=== PATIENT | female | born 1955 | race Caucasian/White ===

== ENCOUNTER 2016-08-18 08:51 | Inpatient (IN) | payer MEDICARE, MEDICAID ==
[2016-08-18 09:47] VITALS: BP 155/80
[2016-08-18 11:20] LABS: % BASOPHILS 0.1 % (0.0-2.0); % EOSINOPHILS 0.3 % (0.0-5.0); % LYMPHOCYTES 10.3 % (20.0-50.0); % MONOCYTES 2.5 % (2.0-10.0); % NEUTROPHILS 86.8 % (40.0-80.0); HEMATOCRIT 39.2 % (35.0-45.0); MEAN CELL VOLUME 77.7 fl (81-100); MEAN CORPUSCULAR HEMOGLOBIN 25.7 pg (27.0-31.0); MEAN CORPUSCULAR HGB CONC 33.1 pg (28.0-36.0); MEAN PLATELET VOLUME 6.9 fl; NEUTROPHILE ABSOLUTE 7.4 Th/cmm (1.8-8.0); PLATELET COUNT 436 Th/cmm (150-400); RED BLOOD COUNT 5.05 Mil/cmm (3.80-5.10); RED CELL DISTRIBUTION WIDTH 15.2 % (11.5-20.0); WHITE BLOOD COUNT 8.5 Th/cmm (4.8-10.8)
--- NOTE | 2016-08-18 15:07 | History & Physical ---
CHIEF COMPLAINT: Psychosis. HISTORY OF PRESENT ILLNESS: The patient is a confused 61-year-old female who appears older than her stated age. She apparently is homeless. She was brought to the hospital because of acute psychosis. She is in the acute Geropsych Unit. She has a history of multiple medical issues including neuropathic pain, chronic pain, muscle spasms and GERD and DJD of the hips and knees. PAST MEDICAL HISTORY: Significant for right hip DJD, neuropathic pain, GERD and chronic pain, muscle spasm. SURGICAL HISTORY: She states she has had multiple surgeries including both wrists, right femur, right hip and left knee. When asked what happened, she states that she fell. Also of note, I am unable to see any surgical scars on her above-mentioned surgical sites. ALLERGIES: The patient seems to regurgitate whatever medications she has memorized. She told the staff about 9 medications last night. Today, she says she is allergic to potassium, then she changed her mind to Lyrica. The patient is unable to tell me if she has true allergies to any medication. FAMILY HISTORY: Unknown. HOME MEDICATIONS: Reviewed and reconciled. There is a list available of her home medications. REVIEW OF SYSTEMS: GENERAL: Positive recent fatigue and confusion. HEENT: No recent head trauma, change in vision, taste, hearing, or smell. Oral: Denies any pain or discharge. NECK: No recent tracheal deviation. NEUROLOGIC: She has history of neuropathic pain. ABDOMEN: No recent pain or distention. GASTROINTESTINAL: Denies any nausea, vomiting or diarrhea. SKIN: No recent rashes. PSYCHIATRIC: She has history of depression and psychosis and possible schizophrenia. NEUROLOGIC: No history of stroke or seizure. MUSCULOSKELETAL: She has history of DJD of the right hip and knees as well. PHYSICAL EXAMINATION: VITAL SIGNS: Temperature is 98.9 degrees, heart rate is in the 70s, respirations 18, blood pressure 155/80 currently. She states the pain is about 2/10. GENERAL: No acute distress. She is awake, but confused. She has a labile mood. HEENT: Normocephalic, atraumatic. Pupils are round and reactive to light. Extraocular muscles intact. NECK: Trachea is midline. No JVD. CARDIOVASCULAR: Regular rate and rhythm. RESPIRATORY: Clear, but decreased breath sounds. EXTREMITIES: There is no edema. MUSCULOSKELETAL: She has decreased range of motion in lower extremities bilaterally. NEUROLOGIC: No evidence of acute stroke or seizure activity. GENITOURINARY: No hematuria noted. LABORATORY DATA: I have ordered CBC, CMP, UA and a chest x-ray along with hemoglobin A1c and magnesium level. ASSESSMENT: 1. Right hip degenerative joint disease. 2. Psychosis. 3. Depression. 4. Neuropathic pain. 5. Chronic pain. 6. Muscle spasms. 7. Gastroesophageal reflux disease. PLAN: I will order Tylenol as needed for mild to moderate pain. Follow up on CBC, CMP, UA and a chest x-ray. Continue fall precautions and continue her home medications for neuropathic pain and she will need inpatient psychiatric care. JOB# [id number]
[2016-08-18 17:07] LABS: URINE BILIRUBIN NEGATIVE (NEGATIVE); URINE BLOOD TRACE (NEGATIVE); URINE COLOR YELLOW; URINE GLUCOSE (UA) 100 mg/dL (NEGATIVE); URINE KETONE NEGATIVE (NEGATIVE); URINE PH 8.5; URINE PROTEIN NEGATIVE (NEGATIVE); URINE UROBILINOGEN 0.2 E.U./dL (0.2 - 1.0)
[2016-08-18 17:08] LABS: URINE BACTERIA OCCASIONAL /hpf (NONE SEEN); URINE EPITHELIAL CELLS RARE /lpf (FEW); URINE WBC 0-2 /hpf (0-5)
--- NOTE | 2016-08-19 02:08 | Psychosocial Evaluation ---
JUSTIFICATION FOR HOSPITALIZATION: The patient was brought in due to issues involving around grave disability, complaints of feeling depressed and tearful. The patient states she does not know why she is here. She is somewhat confused, making some odd statements. Per 5150 hold it is noted that she was anxious, irritable, feeling that people are watching her, laughing at her, hopeless and despairing. CHIEF COMPLAINT: "I do not know why I am here." HISTORY OF PRESENT ILLNESS: This is a 61-year-old female who states she has a history of depression, brought in on a 5150 hold with grave disability. The patient brought herself to an ER reporting that she is fearful that people are watching her, noted to be abusing methadone, depressed, overwhelmed and hopeless. She feels that people are laughing at her, feels alone, helpless and despairing "I do not care anymore. I cannot handle anymore, concerns for her ability to care for her basic needs. Sleep "okay" and appetite unknown. The patient states that she is homeless. PAST PSYCHIATRIC HISTORY: She states she was in a psychiatric hospital in the past. Denies a suicide history. FAMILY HISTORY: Noncontributory. SOCIAL HISTORY: The patient was born [place], not . She states that she has a son. There is a daughter on the facesheet, but she states "that is my mother. She is 95." The patient states she smokes cigarettes 1 pack per day, denies __other drugs/illitic drugs of__ abuse. MEDICATIONS: Reviewed. LABORATORY DATA: Reviewed. PAST MEDICAL HISTORY: Please see full H and P by Dr. Haas. MENTAL STATUS EXAMINATION: Appearance stated age, unkempt. Mood "why am I here. Affect flat. Thought processes were fragmented. Thought content, no overt SI or HI, but she is paranoid. Insight and judgment diminished x 2, poor impulse control. PROVISIONAL DIAGNOSES: Depression, unspecified and psychosis, unspecified, rule out schizophrenia, also Nicotine use disorder, severe. ESTIMATED LENGTH OF STAY: 5-10 days. ASSESSMENT: The patient is requiring inpatient hospitalization, symptomatic, psychotic and paranoid, poor self grooming and concerns for grave disability. PLAN: We will initiate medications. TREATMENT PLAN: Includes group as well as milieu therapy. CONDITIONS FOR DISCHARGE: Improved mood, improved affect and control over psychotic symptoms. [facility]# [id number] ALVARO
[2016-08-19 08:47] LABS: ALB/GLOB RATIO 1.2 (1.0-1.8); ALKALINE PHOSPHATASE 74 U/L (34-104); ANION GAP 8.3 (7.0-16.0); BILIRUBIN,TOTAL 0.4 mg/dL (0.3-1.0); BUN - UREA NITROGEN 11 mg/dL (7-25); BUN/CREATININE RATIO 18.3; CALCIUM SERUM 9.8 mg/dL (8.6-10.3); CARBON DIOXIDE 27.8 mEq/L (21.0-31.0); CHLORIDE 99 mEq/L (98-107); CREATININE - SERUM 0.6 mg/dL (0.6-1.2); GLUCOSE 187 mg/dL (70-105); POTASSIUM SERUM 3.1 mEq/L (3.5-5.1); SGOT 13 U/L (13-39); SGPT/ALT 11 U/L (7-52); SODIUM SERUM 132 mEq/L (136-145)
--- NOTE | 2016-08-19 11:15 | Diagnostic Imaging Report ---
Portable chest x-ray HISTORY: Shortness of breath Patient is markedly rotated. No focal pulmonary processes. No hilar or mediastinal abnormalities. An inferior vena cava filter noted in the upper abdomen. IMPRESSION: 1. No acute focal pulmonary processes
[2016-08-19] MEDS: Potassium Chloride 20 mEq ER Tab PO PRN (15:19)
--- NOTE | 2016-08-20 00:47 | Progress Notes ---
SUBJECTIVE: The patient seen, chart reviewed and discussed with staff. The patient remains symptomatic, still with evidence of paranoia, still with some confusion as to why she is here, noted to be unkempt, poor attention ADLs. The patient was quite paranoid on initial examination. She is not quite sure where she is going to go or why she even needs to be here. The patient is on a 72-hour hold, still believing that people are watching her and laughing at her. She is tolerant to medications. No side effects. Sleeping fairly well, eating well. ASSESSMENT: The patient remains symptomatic, concerns for safety, still delusional, believing that people are following her and watching her, feeling depressed, hopeless and despairing. PLAN: Continue to monitor. Continue concerns about her safety as well as her ability to be cared for at a lower level of care. We will titrate medications. [facility]# [id number]
[2016-08-20 12:21] LABS: ANION GAP 11.2 (7.0-16.0); BUN - UREA NITROGEN 18 mg/dL (7-25); CARBON DIOXIDE 25.8 mEq/L (21.0-31.0); CHLORIDE 97 mEq/L (98-107); CREATININE - SERUM 0.6 mg/dL (0.6-1.2); GLUCOSE 107 mg/dL (70-105); MAGNESIUM 2.3 mg/dL (1.9-2.7); SODIUM SERUM 130 mEq/L (136-145)
--- NOTE | 2016-08-21 00:08 | Progress Notes ---
SUBJECTIVE: Chart reviewed and the patient interviewed. Also, discussed the patient's condition with the staff and reviewed records and labs. The patient remains extremely angry, and she is still extremely agitated. The patient also is still suspicious and is still paranoid. The patient also is still having severe mood swings, and she is still uncooperative with her treatment, and yesterday, the patient refused to get her lab done and this morning and the patient also is taking her medications intermittently. Also, during interview, the patient seems to be actively responding to stimuli, and she is in angry and in irritable mood. Otherwise, the patient is slightly easier to redirect her. ASSESSMENT: The patient is still psychotic and she still can be dangerous to others and self. TREATMENT PLAN: Encouraged the patient to take her psychotropic medications. Also, we will continue to work on her anger and her irritability, and we will continue to follow up closely. JOB# [id number]
[2016-08-21 10:51] LABS: BUN - UREA NITROGEN 20 mg/dL (7-25); BUN/CREATININE RATIO 33.3; CALCIUM SERUM 9.9 mg/dL (8.6-10.3); CARBON DIOXIDE 29.2 mEq/L (21.0-31.0); CHLORIDE 100 mEq/L (98-107); CREATININE - SERUM 0.6 mg/dL (0.6-1.2); GLUCOSE 112 mg/dL (70-105); POTASSIUM SERUM 4.2 mEq/L (3.5-5.1); SODIUM SERUM 133 mEq/L (136-145)
--- NOTE | 2016-08-22 04:13 | Progress Notes ---
SUBJECTIVE: Chart reviewed and the patient interviewed. Also, discussed the patient's condition with the staff and reviewed records and labs. The patient is still in angry and in irritable mood. The patient also is still actively responding to the stimuli and she is still talking to herself and is distracted because of her responding to stimuli. The patient also still having severe mood swings and she is still volatile and gets angry and agitated with the staff and peers easily. Also, patient is rambling with thought processes that are circumstantial. Otherwise, the patient is slightly easier to redirect, but she is refusing ____ and also medications. ASSESSMENT: The patient is still psychotic. TREATMENT PLAN: We will continue monitoring her behavior and her condition closely. Also, continue to encourage the patient to take her medications and to work on her anger and irritability and we will continue to follow up. JOB# [id number]
--- NOTE | 2016-08-23 04:33 | Progress Notes ---
SUBJECTIVE: The patient seen, chart reviewed, discussed with staff. The patient remains symptomatic, somewhat disoriented, unable to care for basic needs, concerns about ____ disabilities, still paranoid, withdrawn, still with evidence of psychosis, still responding. On a positive note, she is amenable to care, amenable to treatment and agitation noted. No EPS. No side effects. ASSESSMENT: The patient remains psychotic, paranoid, gravely disabled. PLAN: Continue to monitor. We are also trying to help with placement. We will increase Abilify today. JOB# [id number]
[2016-08-23 08:55] LABS: ANION GAP 8.5 (7.0-16.0); BUN - UREA NITROGEN 19 mg/dL (7-25); BUN/CREATININE RATIO 31.7; CALCIUM SERUM 9.5 mg/dL (8.6-10.3); CARBON DIOXIDE 25.8 mEq/L (21.0-31.0); CHLORIDE 98 mEq/L (98-107); CREATININE - SERUM 0.6 mg/dL (0.6-1.2); GLUCOSE 147 mg/dL (70-105); POTASSIUM SERUM 3.3 mEq/L (3.5-5.1); SODIUM SERUM 129 mEq/L (136-145)
--- NOTE | 2016-08-24 02:28 | Progress Notes ---
SUBJECTIVE: The patient seen, chart reviewed, discussed with staff. The patient is angry, oppositional, irritable, unable to really give any indication of how she will provide for her basic food, clothing and senior care. She states she wants to go to a board and care. We are working on this at this time. The patient states that she is involved in getting herself to a board and care, but this is just frankly not true. She seems somewhat paranoid, suspicious, withdrawn. Eating without prompting. Sleeping fairly well. Fair attention to ADLs. ASSESSMENT: The patient remains symptomatic, still angry, irritable, oppositional. Her psychosis does seem to be dissipating. RECOMMENDATIONS: Continue to monitor. Monitor for any overt side effects. Work on the patient's coping and insight as well as placement. JOB# [id number]
[2016-08-24] MEDS: Potassium Chloride 20 mEq ER Tab PO PRN (08:29)
[2016-08-24 09:09] LABS: BUN - UREA NITROGEN 18 mg/dL (7-25); CALCIUM SERUM 9.6 mg/dL (8.6-10.3); CARBON DIOXIDE 27.4 mEq/L (21.0-31.0); CHLORIDE 100 mEq/L (98-107); CREATININE - SERUM 0.6 mg/dL (0.6-1.2); GLUCOSE 142 mg/dL (70-105); POTASSIUM SERUM 3.4 mEq/L (3.5-5.1); SODIUM SERUM 129 mEq/L (136-145)
[2016-08-24] MEDS: Diphenoxylate/Atropine 2.5mg Tab PO PRN (17:26)
[2016-08-25] MEDS: Diphenoxylate/Atropine 2.5mg Tab PO PRN ×2 (02:27→12:23)
[2016-08-25] MEDS ORDERED: Haloperidol Lactate 5 mg/mL 1mL Vial ONE (09:50)
[2016-08-25] MEDS ORDERED: Haloperidol Lactate 5 mg/mL 1mL Vial IM ONE (10:00)
[2016-08-25 13:42] LABS: ANION GAP 7.3 (7.0-16.0); BUN - UREA NITROGEN 14 mg/dL (7-25); BUN/CREATININE RATIO 23.3; CALCIUM SERUM 9.3 mg/dL (8.6-10.3); CARBON DIOXIDE 26.9 mEq/L (21.0-31.0); CHLORIDE 101 mEq/L (98-107); CREATININE - SERUM 0.6 mg/dL (0.6-1.2); GLUCOSE 98 mg/dL (70-105); POTASSIUM SERUM 3.2 mEq/L (3.5-5.1); SODIUM SERUM 132 mEq/L (136-145)
[2016-08-25] MEDS: Potassium Chloride 20 mEq ER Tab PO PRN (17:08)
--- NOTE | 2016-08-25 19:57 | Progress Notes ---
SUBJECTIVE: The patient seen, chart reviewed discussed with staff. The patient remains symptomatic, irritable, still paranoid, yelling, screaming episodes, still attesting to __anger__. I explained to her and she will __be in the hospital__ that she is actually on a hold, but she states "no, I am not, I have _to go I'm vol status!_ _." Seems disoriented. She otherwise sleeping okay, eating okay. She is taking her medications. ASSESSMENT: Staff noting patient remains upset, still with yelling episodes, aggressive at times, seems paranoid. We will continue to monitor. The patient is currently gravely disabled, unable to care for her basic needs concerns about safety. JOB# [id number] MTDRomie
--- NOTE | 2016-08-26 01:27 | Progress Notes ---
Covering for Dr. Silva. Case was discussed with staff of the patient, reviewed records. This is a 61-year-old female who 08/18/2016. She has been gravely disabled and continues to be depressed . She does not know why she is here, confused. She has been anxious, irritable, stating people are watching her and laughing at her, hopeless and despairing. This morning, she was acting out. She had to be medicated, The patient so far is compliant with the medication with no side effects, no sedation, and no nausea. She is on Abilify 7.5 mg daily with no side effects, no sedation, and no nausea. I will be increasing the dose to 10 mg and so far no side effects with the medication, no sedation, no nausea, and no extrapyramidal symptoms. The patient continues to be unpredictable, impulsive with poor insight. We will continue to work with the patient in group therapy, milieu therapy, and adjust medication as needed. JOB# [id number]
--- NOTE | 2016-08-27 02:58 | Progress Notes ---
Covering for Dr. Silva. Case was discussed with staff of the patient, reviewed records. The patient continues to be irritable, unpredictable, continues to have poor insight, unable to make safe plan for her self-care. Continues to have poor insight. Looking disheveled, disorganized, internally preoccupied. I did increase her Abilify dose yesterday and today, they report that she is not as aggressive and volatile as she was yesterday. No side effects, no sedation, no nausea, no extrapyramidal symptoms. We will continue to work with the patient in group therapy, milieu therapy, adjust medication as needed. JOB# [id number]
--- NOTE | 2016-08-28 06:18 | Progress Notes ---
Case was discussed with staff of the patient. The patient continues to have episodes of irritability, agitation, but she is redirectable compared to how she was in the past few days. Continues to be unpredictable, impulsive, needing redirection. She is sleeping better. She is compliant with the medication with no side effects, no sedation, no nausea, no extrapyramidal symptoms. We will continue to work with the patient in group therapy, milieu therapy, adjust the medication as needed. JOB# [id number]
--- NOTE | 2016-08-29 04:57 | Progress Notes ---
Case discussed with staff of the patient, reviewed records. Covering for Dr. Silva. The patient continues to have episodes of agitation, irritability, and demanding at times. Continues to be unpredictable, impulsive, looking disheveled. She has been compliant with the medication with no side effects, no sedation, no nausea. She tolerated the increase in Abilify ____ for her with no side effects, no sedation, no nausea, no extrapyramidal symptoms. We will continue to work with patient in group therapy, milieu therapy, adjust the medication as needed. JOB# [id number]
--- NOTE | 2016-08-30 08:36 | Progress Notes ---
SUBJECTIVE: The patient seen, chart reviewed. Discussed with staff. The patient _appears___ more linear, engaged, no paranoia. No SI, no HI. No evidence of psychosis at this time, much calmer on exam, ___states_ that she would like to wait at the hospital and calm __w__ staff noting she has been a lot more engaged, eating well, sleeping well, no longer with any yelling or screaming episodes, no agitation, placement has been confirmed. ASSESSMENT: The patient was with better attention, ADLs, good eye contact. Speech within normal limits. Mood "better." Affect brighter. Thought process linear. Thought content, no SI, no HI, no intent, no plan. No evidence of psychosis. Good concentration. Insight and judgment improved x2. The patient hopeful, motivated. PLAN: The patient has been accepted at the [facility], we will discharge today. JOB# [id number] MTDD
--- NOTE | 2016-10-31 21:25 | Discharge Summary ---
DATE OF DISCHARGE: 08/29/2016 JUSTIFICATION FOR HOSPITALIZATION: The patient was brought in due to grave disability, depression, tearful, confused, making odd statements, anxious, irritable, and paranoid. CHIEF COMPLAINT: "I don't know why I'm here." HISTORY OF PRESENT ILLNESS: This is a 61-year-old female with history of depression, brought in on a hold, grave disability, believing that people are watching her, noted to be abusing methadone, depressed, overwhelmed, hopeless, and despairing, feels that people are laughing at her, sleeping, "okay." Appetite, unknown. Homeless. PAST PSYCHIATRIC HISTORY: Reviewed. SOCIAL HISTORY: Born in [place], not . She has a son and daughter. She is confused when giving me information. MENTAL STATUS EXAMINATION: Please see full psych eval for details. PROVISIONAL DIAGNOSES: Depression, unspecified; psychosis, unspecified; rule out schizophrenia; also nicotine use disorder, severe. MEDICAL HISTORY: Please see full H and P. HOSPITAL COURSE: After initial assessment, the patient was started on medications to target her symptoms. Medications were titrated appropriately over the course of the hospitalization. She did improve. Her mood improved. Affect improved. She was noted to be getting along better with staff and peers. She is more engaged. No dangerousness noted. No longer believing that the people are after her, trying to harm her in anyway. Towards the latter end of her hospitalization, her symptoms had improved and disposition planning was initiated. CONDITION UPON DISCHARGE: Improved with better attention ADLs, better eye contact. Speech was rambling. Mood "okay." Affect constricted. Thought processes were more engaged, no SI, no intent, no plan. No HI, no intent, no plan. No psychotic symptoms elicited, better insight, better judgment, and better impulse control. No dangerousness noted. No violence noted. DISCHARGE DIAGNOSES: Depression, unspecified; psychosis, unspecified; rule out schizophrenia; also nicotine use disorder, severe. MEDICAL: Please see full and P. PROGNOSIS: If the patient follows up with Psychiatrist at [facility] upon disposition and takes her medications as directed, prognosis will improve, otherwise guarded. [facility]# [id number]
== END 2016-08-29 18:21 | DRG 885 ==
LOC: GERO 08:51
PROVIDERS: ADMIT Psychiatry & Neurology Psychiatry; ATTEND Psychiatry & Neurology Psychiatry
DX: F20.9 Schizophrenia, unspecified (principal); E87.1 Hypo-osmolality and hyponatremia; F32.9 Major depressive disorder, single episode, unspecified; F29 Unspecified psychosis not due to a substance or known physiological condition; F17.200 Nicotine dependence, unspecified, uncomplicated; G62.9 Polyneuropathy, unspecified; G89.29 Other chronic pain; M62.838 Other muscle spasm; K21.9 Gastro-esophageal reflux disease without esophagitis; M17.0 Bilateral primary osteoarthritis of knee; M16.0 Bilateral primary osteoarthritis of hip; E87.6 Hypokalemia; Z59.0 Homelessness; Z88.8 Allergy status to other drugs, medicaments and biological substances
CPT/HCPCS: 36415-UA; 71010-TC; 80048-TC; 80053-TC; 81001-TC; 83036-90; 83735-TC; 85025-TC; 87230-TC; 90899; G0410; J1200; J1630; Z7610